=== PATIENT | male | born 2000 | race Caucasian/White ===

== ENCOUNTER 2023-09-08 15:25 | Emergency (ER) | payer BC ==
[~2023-09-08] VITALS: Ht 175.3 cm; Wt 68.0 kg
[2023-09-08] MEDS ORDERED: KETOROLAC TROMETHAMINE INJ 30 MG/ML VIAL ONE (16:51)
[2023-09-08] MEDS: KETOROLAC TROMETHAMINE INJ 30 MG/ML VIAL IM ONE (16:54)
[2023-09-08 18:42] LABS: APPEARANCE,URINE CLEAR (CLEAR); BILIRUBIN,URINE NEGATIVE (NEGATIVE); BLOOD, URINE NEGATIVE Ery/uL (NEGATIVE); COLOR,URINE YELLOW (YELLOW); KETONES,URINE NEGATIVE (NEGATIVE); LEUKOCYTE ESTERASE ,URINE NEGATIVE (NEGATIVE); NITRITE, URINE NEGATIVE (NEGATIVE); PH,URINE 7.5 (5.0-8.0); PROTEIN,URINE NEGATIVE (NEGATIVE); UGLUCOSE NEGATIVE (NEGATIVE); UROBILINOGEN,URINE 0.2 EU/dL (0.2)
[2023-09-08] MEDS ORDERED: HYDROCODONE/APAP 5/325MG TABLET ONE (18:42)
[2023-09-08] MEDS: HYDROCODONE/APAP 5/325MG TABLET PO ONE (18:43)
[2023-09-08 18:54] LABS: AMPHETAMINE, URINE NEGATIVE (NEGATIVE); BARBITURATE, URINE NEGATIVE (NEGATIVE); BENZODIAZEPINE, URINE NEGATIVE (NEGATIVE); COCCAINE, URINE NEGATIVE (NEGATIVE); OPIATE, URINE NEGATIVE (NEGATIVE); PHENCYCLIDINE SCREEN,URINE NEGATIVE (NEGATIVE)
[2023-09-08 19:24] LABS: CANNABINOID, URINE POSITIVE (NEGATIVE)
[2023-09-08 19:32] VITALS: BP 133/86; TEMP 98.4; O2SAT 100
== END 2023-09-08 19:33 | disposition home or self-care (01) ==
LOC: ER 15:59
DX: M54.50 Low back pain, unspecified (principal); G89.29 Other chronic pain
CPT/HCPCS: 99285; 72131; 96372; 80307; 81003; J1885